=== PATIENT | male | born 1980 | race Caucasian/White ===

== ENCOUNTER 2016-10-21 13:07 | Outpatient (CLI) | payer SELFPAY ==
--- NOTE | 2016-10-21 14:02 | DIAGNOSTIC IMAGING REPORT ---
PROCEDURE: XR THORACIC SPINE 3 VIEWS INDICATION: MIDLINE THORACIC BACKJ PX, UNSPECIFIED CHRONICITY TECHNIQUE: Three views. COMPARISON: None. FINDINGS: Osseous structures and disc spaces are normal. No evidence of an acute process or fracture. IMPRESSION: 1. Negative thoracic spine.
== END 2016-10-21 23:00 ==
LOC: XR SRH 13:07
DX: M54.6 Pain in thoracic spine (principal)